=== PATIENT | male | born 1985 | race Hispanic/Latino ===

== ENCOUNTER 2023-12-26 17:15 | Emergency (ER) | payer SELFPAY ==
[~2023-12-26] VITALS: Ht 165.1 cm; Wt 60.0 kg
[2023-12-26] VITALS (12 sets, daily range): BP systolic 107–118; BP diastolic 69–87
[2023-12-26] MEDS ORDERED: LORTAB 5/3255 MG PO (19:10)
== END 2023-12-26 20:07 | disposition home or self-care (01) | DRG 563 ==
LOC: ED 17:15
PROC: 2W3RX1Z Immobilization of Left Lower Leg using Splint (ICD-10-PCS; principal; 2023-12-26)
DX: S82.392A Other fracture of lower end of left tibia, initial encounter for closed fracture (principal); S82.832A Other fracture of upper and lower end of left fibula, initial encounter for closed fracture; X50.0XXA Overexertion from strenuous movement or load, initial encounter; Y93.66 Activity, soccer